=== PATIENT | male | born 1965 | race Caucasian/White ===

== ENCOUNTER 2019-01-12 19:56 | Emergency (ER) | payer MEDICARE ==
[~2019-01-12] VITALS: Ht 172.7 cm; Wt 100.0 kg
[~2019-01-12 19:56] MED LIST: ALBUTEROL SUL0.083 % IN; AMIT PO; BUMETANIDE1 MG PO; BUMETANIDE2 MG PO; BUPRENORPHIN8 MG PO; BUPRENORPHINE HC8 MG SL; CIPROFLOXACN500 MG PO; FUROSEMIDE40 MG PO; K-DUR/KLOR-CON10 MEQ PO; KEFLEX500 M1 PO; KLOR-CON M2020 MEQ PO; LEVOTHYROXIN25 MC1 PO; LISINOPRIL10 MG PO; LYRICA50 MG PO; LYRICA75 MG PO; METFORMIN500 MG PO; METO50TA52 PO; OMEPRAZOLE DR40 MG PO; PERPHEN PO; POTASSIUM CHLO20 ME1 PO; PREVACID30 M1 PO; TOPROL XL50 MG PO; TORADOL PO
[2019-01-12] MEDS ORDERED: LYRICA150 M1 PO (20:19)
[2019-01-12] MEDS ORDERED: BUPRENORPHIN8 MG SL (20:20)
[2019-01-12] MEDS ORDERED: ATORVASTATIN CA20 MG PO (20:21)
[2019-01-12] MEDS ORDERED: LEVOTHYROXIN75 MC1 PO (20:23)
[2019-01-12] MEDS ORDERED: ZPAK PO (21:29)
[2019-01-12] MEDS ORDERED: VENTOLIN HFA IN (21:29)
[2019-01-12] MEDS ORDERED: TESSALON PERLE100 MG PO (21:29)
[2019-01-12 21:40] VITALS: BP 133/75
== END 2019-01-12 21:40 | disposition home or self-care (01) ==
LOC: ED 19:56
DX: J40 Bronchitis, not specified as acute or chronic (principal); E11.9 Type 2 diabetes mellitus without complications; I10 Essential (primary) hypertension; E03.9 Hypothyroidism, unspecified; F17.210 Nicotine dependence, cigarettes, uncomplicated; Z79.84 Long term (current) use of oral hypoglycemic drugs

== ENCOUNTER 2023-01-16 21:37 | Emergency (ER) | payer MEDICARE ==
[~2023-01-16] VITALS: Ht 172.7 cm; Wt 113.0 kg
[~2023-01-16 21:37] MED LIST changes: +ATORVASTATIN CA20 MG PO; +BUPRENORPHIN8 MG SL; +LEVOTHYROXIN75 MC1 PO; +LYRICA150 M1 PO; +TESSALON PERLE100 MG PO; +VENTOLIN HFA IN; +ZPAK PO
[2023-01-16 22:06] VITALS: BP 143/65
[2023-01-16 22:15] VITALS: BP 112/55
[2023-01-16 22:30] VITALS: BP 101/51
[2023-01-16 22:45] VITALS: BP 100/49
[2023-01-16 23:01] VITALS: BP 114/51
[2023-01-16 23:20] LABS: BASO% 0.1 % (0-3); EOS% 0.2 % (0-8); HEMOGLOBIN 12.4 g/dl (14.0-18.0); IMMATURE GRANULOCYTES 0.8 % (0.0-5.0); LYMPH% 8.2 % (15-41); MEAN CELL VOLUME 88.2 fL CALC (80.0-100.0); MEAN CORPUSCULAR HGB 28.8 pG CALC (26.0-32.0); MEAN CORPUSCULAR HGB CONC 32.6 g/dL CAL (32.0-36.0); MONO% 4.7 % (2-13); NEUT# 7.61 thou/uL (1.82-7.42); RED BLOOD COUNT 4.31 mill/uL (4.70-6.10); RED CELL DISTRI WIDTH 12.9 % (11.5-15.5)
[2023-01-16 23:33] LABS: ALBUMIN 3.5 g/dL (3.2-5.0); ALKALINE PHOSPHATASE 114 u/l (38-126); BUN 16 mg/dL (9-20); BUN/CREATININE RATIO 14 (12-20 (CALC)); CARBON DIOXIDE 29 mmol/l (22-30); CHLORIDE 96 mmol/l (95-108); CREATININE 1.2 mg/dL (0.7-1.3); GFR FOR AFR.AMER. > 60 ML/MIN (>=60 (CALC)); GFR OTHER RACES > 60 ML/MIN (>=60 (CALC)); SGOT/AST 22 u/l (17-59); TOTAL PROTEIN 6.7 g/dL (6.3-8.2)
[2023-01-16 23:36] LABS: ANION GAP 10 (6-22 (CALC)); POTASSIUM 2.9 mmol/l (3.5-5.1); SODIUM 132 mmol/l (137-146)
[2023-01-17] MEDS ORDERED: BACTRIM DS1 TAB PO (01:42)
[2023-01-17] MEDS ORDERED: AMOX/K CLAV875 M1 PO ×2 (01:42→01:51)
[2023-01-17 01:46] VITALS: BP 114/51
[2023-01-17] MEDS ORDERED: ULTRAM50 MG PO (01:47)
== END 2023-01-17 01:53 | disposition left against medical advice (07) ==
LOC: ED 21:37
PROVIDERS: Emergency Medicine
DX: S81.852A Open bite, left lower leg, initial encounter (principal); L03.116 Cellulitis of left lower limb; I10 Essential (primary) hypertension; E11.9 Type 2 diabetes mellitus without complications; E03.9 Hypothyroidism, unspecified; E78.00 Pure hypercholesterolemia, unspecified; I89.0 Lymphedema, not elsewhere classified; F17.200 Nicotine dependence, unspecified, uncomplicated; W55.01XA Bitten by cat, initial encounter; Z53.29 Procedure and treatment not carried out because of patient's decision for other reasons; Z79.84 Long term (current) use of oral hypoglycemic drugs